=== PATIENT | female | born 1950 | race Caucasian/White ===

== ENCOUNTER 2018-01-25 19:53 | Emergency (ER) | payer OTHER ==
[~2018-01-25] VITALS: Ht 154.9 cm; Wt 54.4 kg
--- NOTE | 2018-01-25 20:05 | NUR ---
Baldemar portillo in EDM - 01/25/18 at 2015 by YASHIRA PATIENT LEFT WITHOUT BEING SEEN BY DR. SEQUEIRA. NO FURTHER CARE PROVIDED FOR PATIENT. PT CALLED IN AND OUT OF LOBBY THREE TIMES, NO ANSWER
[2018-01-25 20:26] VITALS: BP 132/72
--- NOTE | 2018-01-25 20:32 | NUR ---
TO LOBBY A/W SERGO, POLLY, ROSEANNE.
--- NOTE | 2018-01-25 21:02 | NUR ---
pt ambulated to bed 2 at this time
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
[2018-01-25] MEDS ORDERED: BACITRACIN OINT 500 UNITS/GM PKT TP ONE (21:30)
[2018-01-25 21:49] VITALS: BP 135/76
--- NOTE | 2018-01-25 21:49 | NUR ---
Patient discharged with v/s stable. Written and verbal after care instructions given and explained. Patient alert, oriented and verbalized understanding of instructions. Ambulatory with steady gait. All questions addressed prior to discharge. ID band removed. Patient advised to follow up with PMD. Rx of ACETAMINOPHEN, KEFLEX given. Patient educated on indication of medication including possible reaction and side effects. Opportunity to ask questions provided and answered.
== END 2018-01-25 21:49 | disposition home or self-care (01) ==
LOC: MED 19:53
DX: T22.212A Burn of second degree of left forearm, initial encounter (principal); T22.112A Burn of first degree of left forearm, initial encounter; Z90.89 Acquired absence of other organs; Z85.3 Personal history of malignant neoplasm of breast; X17.XXXA Contact with hot engines, machinery and tools, initial encounter; Y93.89 Activity, other specified; Y92.89 Other specified places as the place of occurrence of the external cause; Y99.8 Other external cause status
CPT/HCPCS: 99283

== ENCOUNTER 2022-10-13 07:57 | Emergency (ER) | payer OTHER ==
[~2022-10-13] VITALS: Ht 154.9 cm; Wt 55.8 kg
[2022-10-13 07:59] VITALS: BP 171/86
--- NOTE | 2022-10-13 08:08 | NUR ---
PT AMB TO BED 2.
--- NOTE | 2022-10-13 08:15 | NUR ---
pt in bed 2, a/o times 4, nad, mild headache now 5, no n/v, o2 sat 99% ra, sr up times 2
[2022-10-13 08:44] LABS: BASOPHILS % (AUTO) 0.7 % (0.0-2.0); EOSINOPHILS % (AUTO) 0.5 % (0.0-4.0); HEMATOCRIT 45.1 % (36-48); HEMOGLOBIN 15.1 g/dL (12.0-16.0); LYMPHOCYTES # (AUTO) 0.8 K/uL (2.5-16.5); LYMPHOCYTES % (AUTO) 15.1 % (20.5-51.1); MEAN CORPUSCULAR HEMOGLOBIN 27 pg (27-31); MEAN CORPUSCULAR HGB CONC 33 g/dL (33-37); MEAN CORPUSCULAR VOLUME 81.9 fL (80-94); MONOCYTES # (AUTO) 0.2 K/uL (0.8-1.0); MONOCYTES % (AUTO) 4.4 % (1.7-9.3); NEUTROPHILS # (AUTO) 4.4 K/uL (1.8-7.7); NEUTROPHILS % (AUTO) 79.3 % (42.2-75.2); PLATELET COUNT (AUTO) 205 K/uL (140-450); RED BLOOD CELL COUNT(AUTO) 5.51 MIL/uL (4.20-5.40); RED CELL DISTRIBUTION WIDTH 13.5 % (11.6-13.7); WHITE BLOOD COUNT (AUTO) 5.5 K/uL (4.8-10.8)
[2022-10-13 09:01] LABS: ALBUMIN 4.1 g/dL (3.4-5.0); ANION GAP 12.1 (8-16); ASPARTATE AMINOTRANSFERASE 18 U/L (15-37); CARBON DIOXIDE 28.9 mmol/L (21-32); CHLORIDE 104 mmol/L (98-107); CREATININE 0.8 mg/dL (0.6-1.3); GLUCOSE 110 mg/dL (74-106); SODIUM SERUM 140 mmol/L (136-145); TOTAL BILIRUBIN 0.2 mg/dL (0.0-1.0); UREA NITROGEN, BLOOD 9 mg/dL (7-18)
[2022-10-13] MEDS ORDERED: lisinopriL 20 MG TAB PO ONE (09:10)
--- NOTE | 2022-10-13 09:30 | NUR ---
a/o times 4, nad, headache 10/19, no n/v, o2 sat 99% ra, sr up times 2
[2022-10-13] MEDS ORDERED: LISI-487 PO ×2 (09:44→09:49)
[2022-10-13 09:57] VITALS: BP 139/76
--- NOTE | 2022-10-13 10:19 | NUR ---
Patient discharged with v/s stable. Written and verbal after care instructions given and explained. Patient verbalized understanding. Ambulatory with steady gait. All questions addressed prior to discharge. Advised to follow up with PMD in 3-4 days
== END 2022-10-13 09:57 | disposition home or self-care (01) ==
LOC: MED 07:57
DX: I16.1 Hypertensive emergency (principal); R51.9 Headache, unspecified; Z79.899 Other long term (current) drug therapy
CPT/HCPCS: 36415; 71045; 80053; 83880; 84484; 85025; 93005; 99285; Q0092